=== PATIENT | female | born 1950 | race Caucasian/White ===

== ENCOUNTER 2021-07-05 09:14 | Emergency (ER) | payer MEDICARE, OTHER ==
[2021-07-05] MEDS ORDERED: MINERAL OIL ENEMA 133 ML BOTTLE RC STA (10:17)
--- NOTE | 2021-07-05 10:20 | ED Physician Documentation ---
PD HPI ABD PAIN - Stated complaint Stated Complaint: FEMALE - Chief complaint Chief Complaint: Abd Pain - History obtained from History obtained from: Patient - History of Present Illness Timing - onset: How many weeks ago (1) Timing - duration: Weeks (1) Timing - details: Abrupt onset, Still present Quality: Fullness/distended Location: All over / everywhere Radiation: No: Chest, , Lower back, Left flank, Left shoulder, Right flank, Right shoulder, Upper back Improved by: Laying still Worsened by: Moving, Position, Palpation Associated symptoms: Nausea, Constipation. No: Vomiting Similar symptoms before: Diagnosis (constipation) Recently seen: Not recently seen - Additional information Additional information: 70-year-old female has recently had increase her dose of gabapentin up to 300 mg and she has developed some constipation. She has not had a bowel movement in 1 week. She has tried some milk of magnesia and she has tried some Dulcolax. She is tried a dose of each one. She is developed some generalized fullness to her abdomen and some nausea she has not had any vomiting. Review of Systems Constitutional: denies: Fever Ears: denies: Ear pain Nose: denies: Congestion Throat: denies: Sore throat Respiratory: denies: Cough GI: reports: Abdominal Pain, Nausea, Constipation. 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 HEENT: Tonsil/Adenoidectomy - Present Medications Home Medications: Ambulatory Orders Medication Instructions Recorded Confirmed Bupropion HCl [Wellbutrin] 11/02/14 11/02/14 Ciprofloxacin [Cipro] 500 mg PO Q12H #20 tablet 11/02/14 Diclofenac Sodium 11/02/14 11/02/14 Insulin Glargine [Lantus] 75 units 11/02/14 11/02/14 Insulin Humulog Sliding Scale 11/02/14 11/02/14 Simvastatin 11/02/14 11/02/14 hydroCHLOROthiazide 11/02/14 11/02/14 [Hydrochlorothiazide] lisinopriL [Prinivil] 11/02/14 11/02/14 - Allergies Allergies/Adverse Reactions: Allergies Allergy/AdvReac Type Severity Reaction Status Date / Time metronidazole [From Flagyl] Allergy Respiratory Verified 11/02/14 14:29 Penicillins AdvReac Rash Verified 07/05/21 09:29 - Social History Does the pt smoke?: No Smoking Status: Never smoker Does the pt drink ETOH?: No Does the pt have substance abuse?: No PD ED PE NORMAL - Vitals Vital signs reviewed: Yes (hypertensive mild ) - General General: Alert and oriented X 3, No acute distress, Well developed/nourished - HEENT HEENT: Atraumatic, PERRL, EOMI - Respiratory Respiratory: No respiratory distress - Abdomen Abdomen: Normal bowel sounds, Soft, No organomegaly, Other (generally full with minimal tenderness. 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, No motor deficit, No sensory deficit, Normal speech Eye Opening: Spontaneous Motor: Obeys Commands Verbal: Oriented GCS Score: 15 - Psych Psych: Normal mood, Normal affect Results - Vitals Vitals: Vital Signs - 24 hr 07/05/21 07/05/21 09:23 11:17 Temperature 37.1 C Heart Rate 94 103 H Respiratory 18 Rate Blood Pressure 156/72 H 145/84 H O2 Saturation 97 Oxygen O2 Source Room air PD MEDICAL DECISION MAKING - ED course Complexity details: reviewed results, re-evaluated patient, considered differential, d/w patient ED course: 70-year-old female with a history of constipation is administered a enema with good result. Departure - Departure Disposition: 01 Home, Self Care Clinical Impression: Constipation Qualifiers: Constipation type: unspecified constipation type Qualified Code(s): K59.00 - Constipation, unspecified Condition: Stable Instructions: ED Constipation Follow-Up: KYLEE LEVINE MD, DO [Primary Care Provider] - Comments: The recommendation when you have been constipated for a week is to use something on a regular basis for at least 2 weeks to retrain your colon. The recommendation is to use some MiraLAX.
[2021-07-05 11:18] VITALS: BP 145/84
== END 2021-07-05 11:32 | disposition home or self-care (01) ==
LOC: ED 09:14
DX: K59.00 Constipation, unspecified (principal); E11.9 Type 2 diabetes mellitus without complications; Z79.4 Long term (current) use of insulin
CPT/HCPCS: 99282; 99284; A9270

== ENCOUNTER 2022-12-08 07:35 | Outpatient (CLI) | payer MEDICARE, OTHER ==
[2022-12-08 14:57] LABS: ALBUMIN/GLOBULIN RATIO 1.3 (1.0-2.2); ALKALINE PHOSPHATASE 84 IU/L (42-121); ALT ALANINE AMINOTRANSFERASE 12 IU/L (10-60); AST ASPARTATE AMINOTRANSFERASE 18 IU/L (10-42); BILIRUBIN,TOTAL 0.4 mg/dL (0.2-1.0); BUN - BLOOD UREA NITROGEN 27 mg/dL (6-20); CARBON DIOXIDE - CO2 26 mmol/L (21-32); CHLORIDE 111 mmol/L (101-111); CHOL/HDL RATIO 2.5 (<4.4); CHOLESTEROL 145 mg/dL; CREATININE 0.8 mg/dL (0.4-1.0); GFR - MDRD 71 (>89); GLUCOSE 161 mg/dL (70-100); HDL CHOLESTEROL 57 mg/dL; LDL CHOLESTEROL,CALCULATED 69 mg/dL; LDL/HDL RATIO 1.2 (<4.4); POTASSIUM 4.4 mmol/L (3.5-5.0); SODIUM 141 mmol/L (135-145); TOTAL PROTEIN 7.1 g/dL (6.7-8.2); TRIGLYCERIDES 97 mg/dL; VLDL CHOLESTEROL 19 mg/dL
== END 2022-12-08 07:36 | disposition home or self-care (01) ==
LOC: LAB.S 07:35
PROVIDERS: ATTEND Family Medicine Geriatric Medicine
DX: E11.22 Type 2 diabetes mellitus with diabetic chronic kidney disease (principal); N18.31 Chronic kidney disease, stage 3a; Z79.4 Long term (current) use of insulin
CPT/HCPCS: 36415; 80053; 80061; 81001; 82043; 82570; 83036; 83721; 87086